=== PATIENT | female | born 1970 | race Asian ===

== ENCOUNTER 2018-10-07 07:54 | Day surgery (SDC) | payer OTHER ==
[2018-10-07] MEDS ORDERED: SOD CHLORIDE 0.9% 1,000 ML IV (08:30)
[2018-10-07] MEDS ORDERED: CEFAZOLIN 2 GM/50 ML (PMX) 50 ML IVPB (08:30)
[2018-10-07 08:57] LABS: ADD MAN DIFF? NO
[2018-10-07 08:58] LABS: WHITE BLOOD COUNT 3.1 10^3/ul (4.8-10.8)
[2018-10-07 08:58] LABS: BASOPHILS % 0.7 % (0.0-2.0); EOSINOPHILS # 0.1 10^3/ul (0.0-0.5); EOSINOPHILS % 2.6 % (0.0-7.0); HEMATOCRIT 41.8 % (37.0-47.0); HEMOGLOBIN 13.6 g/dl (12.0-16.0); LYMPHOCYTES # 0.9 10^3/ul (0.8-2.9); LYMPHOCYTES % 28.5 % (15.0-51.0); MEAN CORPUSCULAR HEMOGLOBIN 30.7 pg (29.0-33.0); MEAN CORPUSCULAR HGB CONC 32.5 g/dl (32.0-37.0); MEAN CORPUSCULAR VOLUME 94.4 fl (82.0-101.0); MONOCYTE # 0.2 10^3/ul (0.3-0.9); MONOCYTES % 7.2 % (0.0-11.0); NEUTROPHIL # 1.9 10^3/ul (1.6-7.5); NEUTROPHILS % 60.7 % (39.0-77.0); PLATELET COUNT 179 10^3/UL (140-415); RED BLOOD COUNT 4.43 10^6/ul (4.20-5.40); RED CELL DISTRIBUTION WIDTH 13.4 % (11.5-14.5)
[2018-10-07 09:04] LABS: ALANINE AMINOTRANSFERASE 25 IU/L (13-69); ALBUMIN 4.5 g/dl (3.3-4.9); ALBUMIN/GLOBULIN RATIO 1.36; ALKALINE PHOSPHATASE 61 IU/L (42-121); ANION GAP 6 (5-13); ASPARTATE AMINO TRANSFERASE 30 IU/L (15-46); BILIRUBIN,INDIRECT 0.5 mg/dl (0-1.1); BILIRUBIN,TOTAL 0.5 mg/dl (0.2-1.3); BLOOD UREA NITROGEN 15 mg/dl (7-20); CALCIUM 9.5 mg/dl (8.4-10.2); CARBON DIOXIDE 31 mmol/L (21-31); CHLORIDE 107 mmol/L (97-110); CREATININE 0.51 mg/dl (0.44-1.00); Estimated GFR > 60 mL/min (>60); GLUCOSE 89 mg/dl (70-220); POTASSIUM 4.3 mmol/L (3.5-5.1); SODIUM 144 mmol/L (135-144); TOTAL PROTEIN 7.8 g/dl (6.1-8.1)
[2018-10-07 09:07] LABS: INR 0.87; PROTIME 11.9 Sec (11.9-14.9); PT RATIO 0.9
[2018-10-07 09:08] LABS: PARTIAL THROMBOPLASTIN TIME 33.2 Sec (23.0-35.0)
[2018-10-07 09:24] LABS: HOLD TRANSMISSIONS 1
[2018-10-07] MEDS ORDERED: PROPOFOL 100 ML (10:35)
[2018-10-07] MEDS ORDERED: LIDOCAINE 2% (SDV) 5 ML INJ (10:37)
[2018-10-07] MEDS ORDERED: FENTAnyl 50 MCG/ML VIAL (10:37)
[2018-10-07] MEDS ORDERED: DEXAMETHASONE 4 MG/ML 5 ML INJ (10:53)
[2018-10-07] MEDS ORDERED: ONDANSETRON 4 MG INJ (10:54)
[2018-10-07] MEDS: NEOMYC/POLYMYX/BACIT 30 GM OINT (11:19)
[2018-10-07] MEDS: BUPIVACAINE 0.25% (MPF) 30 ML INJ (11:19)
[2018-10-07] MEDS ORDERED: CEFAZOLIN 1 GM INJ (11:28)
[2018-10-07] MEDS ORDERED: MIDAZOLAM 1 MG/ML 2 ML INJ (11:36)
[2018-10-07] MEDS: MIDAZOLAM 1 MG/ML 2 ML INJ IV (11:42)
[2018-10-07] MEDS ORDERED: ONDANSETRON 4 MG INJ IV (12:00)
[2018-10-07] MEDS ORDERED: ALBUTEROL 0.083% (NEB) 2.5 MG/3 ML AMP HHN (12:00)
[2018-10-07] MEDS ORDERED: EPHEDrine SULFATE 50 MG/5 ML SYG IV (12:00)
[2018-10-07] MEDS ORDERED: hydrALAzine 20 MG INJ IV (12:00)
[2018-10-07] MEDS ORDERED: LABETALOL HCL 20MG INJ IV (12:00)
[2018-10-07] MEDS ORDERED: FENTAnyl 50 MCG/ML VIAL IV ×3 (12:00)
[2018-10-07] MEDS ORDERED: MEPERIDINE 25 MG INJ IV (12:00)
[2018-10-07] MEDS ORDERED: DIPHENHYDRAMINE 50 MG INJ IV (12:00)
[2018-10-07] MEDS ORDERED: OXYCODONE/ACETAMINOPHEN (5/325) TAB PO ×2 (12:00)
[2018-10-07] MEDS: HYDROCODONE/APAP (5/325) TAB PO (12:01)
== END 2018-10-07 14:00 | disposition home or self-care (01) ==
LOC: SDS 07:54
DX: D17.0 Benign lipomatous neoplasm of skin and subcutaneous tissue of head, face and neck (principal)
CPT/HCPCS: 14020; 71045; 80053; 84703; 85025; 85610; 85730; 88307; 93005